=== PATIENT | female | born 1990 | race Caucasian/White ===

== ENCOUNTER 2018-02-09 03:46 | Inpatient (IN) ==
[2018-02-09] MEDS ORDERED: CARBOPROST 250 MCG/ML INJECTION IM PRN (06:15)
[2018-02-09] MEDS ORDERED: ACETAMINOPHEN 500 MG TABLET PO PRN ×2 (06:15→17:13)
[2018-02-09] MEDS ORDERED: D5LR 1,000 ML IV PRN ×2 (06:15→06:19)
[2018-02-09] MEDS ORDERED: LIDOCAINE 1% (10mg/ml) 2mL INJ PF SDV ID PRN (06:15)
[2018-02-09] MEDS ORDERED: MAG-AL + SIM ORAL LIQUID 30ml PO PRN ×2 (06:15→17:13)
[2018-02-09] MEDS ORDERED: METHYLERGONOVINE 0.2 MG/ML INJECTION IM PRN (06:15)
--- OUTSIDE RECORDS SUMMARY | 2018-02-09 06:16 | External Medical Summary | Continuity of Care Document ---
:1990 Author Organization [facility] Address [address] [place], [place] [address] Phone Support Name Relationship Address Phone Jamie Darling spouse [phone] [place] [address] Allergies, Adverse Reactions, Alerts Substance Reaction Severity Status CAT HAIR STANDARDIZED ALLERGENIC EXTRACT burning eyes Unknown Active Medications Medication Instructions Dosage Effective Dates Status Comments (start - stop) Vitamin take 1 tablet by Not Available - Active tablet oral route every day Tylenol Extra take 2 tablet by 1000 MG - Active Strength 500 mg oral route every 6 tablet hours as needed as needed Problems Condition Effective Dates (start - stop) Clinical Status 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) - (routine) w/o abn findings Follow-Up, Routine - Encounter for suprvsn of normal - , first trimester 12 weeks gestation of - Encntr screen for infections w sexl - mode of transmiss Encounter for screening for oth - infec/parastc diseases Encounter for suprvsn of normal - , first trimester Encounter for screening of - mother 10 weeks gestation of - Pap Smear Screening, Cervix - Encounter for suprvsn of normal - , first trimester 12 weeks gestation of - Active Procedures Procedure Date OB Visit No Charge - HAND 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 Age Risk Down 1:704 Syndrome 16:19:00 ARCELIA Down Syndrome <1:50 &lt Risk 16:19:00 00 ;1: 270 ARCELIA Trisomy 18 Risk <1:50 &lt 16:19:00 00 ;1: 100 Calc'd 12.7 [place] rump length (CRL) was Gestational Age 16:19:00 used to calculate gestationalage. ELVIS, if provided, was not used for gestational agedating. MARY-A 977.9 ng/mL This test was performed 16:19:00 using a kit that has not beencleared or approved by the FDA. The analytical performancecharacteristics of this test have been determined by [employer] [facility]. This testshould not be used for diagnosis without confirmation byother medically established means. MARY-A MoM 1.19 16:19:00 h-hCG, Serum 119.5 mcg/L This test was developed and 16:19:00 its analytical performancecharacteristics have been determined by [facility]. It has not beencleared or approved by FDA. This assay has been validatedpursuant to the CLIA regulations and is used for clinicalpurposes. h-hCG MoM 1.02 16:19:00 NT MoM 1.01 The maternal serum screening 16:19:00 results indicate a lower riskof trisomy 21 in this . The nasal bone was assessedvia ultrasound and was present. The combined risk istherefore likely to be less than the calculated risk. Otherfindings later in the may change the risk.Nasal bone assessment is best accomplished through a fetalultrasound performed between 11 weeks 0 days through 13weeks 6 days. In assessing the risk for aneuploidy, theevaluation of the maternal serum markers plus the nuchalthickness measurement is calculated first. Any potentialchange to the patient's risk for aneuploidy depends on thenuchal thickness, crown-rump length, and the ethnic origin,and therefore the values generated by the algorithm itselfwill not change. Additional information about the assessmentof the nasal bone may be found on the [employer] website athttp://www.fetalmedicine.c /fmf/training-certificatio n/ojnaejcuhdjd-jz-saujllrjzn /72-81-egbx-scan/assessment- uy-jbc-vpmeu-bone/Performanc e of nuchal translucency combined with maternalserum MARY-A and h-hCG provides a useful screening test fordetection of Down Syndrome and Trisomy 18 in the firsttrimester of . It should be noted that normalresults can never guarantee the of a normal baby andthat 2 to 3 percent of newborns have some type of physicalor mental defect, many of which are undetectable through anyknown diagnostic technique. First Trimester Screening screens for Down syndrome andTrisomy 18 only. Neural tube defect screening needs to beperformed in the second trimester using MSAFP (txnilasz9786O (729N)). This is best performed at 16-18 weeksgestation. This is a screening test, not a diagnostic test.This risk assessment report is based on demographic data andtest data (e.g., nuchal translucency (NT) measurement)provided by the ordering physician. Please notify thelaboratory promptly if any data (especially NT data) areincorrect. If you have any questions regarding this report:For Clinical Consultation, call [phone])For Technical Information/Recalculations, [phone], [phone]; FAX [phone]. For additional information, please refer tohttp://education.[employer]/faq/WGT30i7(This link is being provided for informational/educationalpur poses only.) Date of 1990 16:19:00 Collection Date 08/02/2017 16:19:00 Maternal Weight 167 lbs 16:19:00 Est'd Date 02/08/2018 of Delivery 16:19:00 ELVIS Determined by ULTRASOUND 16:19:00 Mother's Ethnic Origin 16:19:00 Number of Fetuses 1 16:19:00 Insulin Depend NO Diabetic 16:19:00 Repeat Specimen NO 16:19:00 Hx Of Neural Tube NO Defects 16:19:00 Prev Down NO Synd 16:19:00 Donor Egg NO 16:19:00 Donor Age: Egg NOT GIVEN Retrieval 16:19:00 Ultrasound Date 08/02/2017 16:19:00 Fixed Interest Dealer&am Kellie bruno;#39;s Name 16:19:00 NTQR [id number] Fixed Interest Dealer 16:19:00 ID# NTQR Location ID# [id number] 16:19:00 NTQR Reading Phys [id number] ID# 16:19:00 FMF NOT GIVEN Fixed Interest Dealer 16:19:00 ID# [place] Rump Length 65.8 mm 16:19:00 Nuchal Translucency 1.65 mm 16:19:00 Nasal Bone PRESENT 16:19:00 If Twins NOT GIVEN 16:19:00 Twin B CRL NOT GIVEN mm 16:19:00 Twin B NT NOT GIVEN mm 16:19:00 Twin B Nasal Bone NOT GIVEN REPORT 16:19:00 COMMENT:FASTING:NOTest performed at [facility] [id number] MICHELLE CABRAL [id number]: ROBERTO NIETO MD PHD Advance Directives Directive Yes / No Effective Date File Name Unknown Encounters Encounter Practice Location Reason(s) Diagnoses Date Provider Care Team Description For Visit Members Rob [place] Encounter for Sep-2 Eliecer Referring In Womens suprvsn of normal 7-201 Thai. 700 Provider: Health CAROLE, , first 7 Medical Makayla [address] [email or web address] weeks Center [facility] L, 1522, gestation of Juan [place], 120, Medical [place] RAMOS, [place] [id number], RACHEL, [facility] 120, [place] [id number] [place], tel:+ , [place]. [place], tel:[phone] tel:[phone] Rob [place] Encounter for Sep-2 Lavern Referring In Womens Ultrasound suprvsn of normal 7-201 Makayla. Provider: Health CAROLE, , first 7 700 Makayla [address] [email or web address] weeks Medical Lavern L, 1522, gestation of [place] [address] [place], , [facility], 120, [place] [id number], [facility], [place], tel:[phone] [place], , [place]. [id number]. tel: tel:[phone] Rob Hernandez screen for Sep-1 Lavern Referring In Womens infections w sexl 1-201 Makayla. Provider: Steven LAM, mode of 7 700 Makayla PO Box transmissEncounte Medical Lavern L, 1522, r for screening Center [address] [place] [address], for oth , [facility] Sreedhar RAMOS, infec/parastc 120, [place] [id number], diseasesEncounter [place], [facility] 120, [place] for suprvsn of [place] RAMOS, tel:[phone] normal , [phone] [place], first , [place]. [id number]. trimesterEncounte tel: tel:[phone] r for [phone] screening of weeks gestation of Rob Hernandez for complex case manager Aj-2 Lavern Referring In Womens exam (general) 1-201 Makayla. Provider: Steven LAM, (routine) w/o abn 7 700 Makayla PO Box findings [place], 1522, [place] [address] [place], Dr [facility], 120, [place] [id number], [place], Juan 120, [place] RAMOS, tel:[phone] [place], , [place]. [id number]. tel: tel:[phone] Rob [place] Remigio-1 Lavern Referring In Womens Follow-Up, 6-201 Makayla. Provider: Steven LAM, Routine 6 700 Makayla PO Box Medical Lavern L, 1522, Center [address] Dr Fidel, [facility] [place], 120, Center [id number], [place], [facility] 120, [place] RAMOS, tel:[phone] [place], , [place]. [id number]. tel: tel:[phone] Rob [place] Apr-0 Lavern Referring In Womens 6-201 Makayla. Provider: Steven LAM, 6 700 Makayla PO Box Medical Lavern L, 1522, Center [address] Dr Fidel, [facility], 120, Center [id number], [facility] 120, [place], tel:[phone] [place], , [place]. [id number]. tel: tel:[phone] Rob [place] Oct-2 Lavern Referring In Womens 9-201 Makayla. Provider: Steven LAM, 5 700 Makayla PO Box Medical Lavern L, 1522, Center [address] Dr Fidel, [facility] [place], 120, Center [id number], [place], [facility] 120, [place] RAMOS, tel:[phone] [place], , [place]. [id number]. tel: tel:[phone] Rob [place] Pap Smear Oct-1 Lavern Referring In Womens Screening, Cervix 2-201 Makayla. Provider: Steven LAM, 5 700 Makayla PO Box Medical [place] L, 1522, Center [address], [facility] [place], 120, Center [id number], [place], [facility] 120, [place] RAMOS, tel:[phone] [place], , [place]. [id number]. tel: tel:[phone] Rob [place] Mercedes In Womens 1-201 [facility], 5 700 PO [facility] 1522, [place] Dr Fidel, [facility], 120, [id number], [place], [place], tel:[phone] , [place]. tel: [phone] Family History Family Member Diagnosis Age At Onset No family history of Venous Thrombosis No family history of Pulmonary Embolism Father Stroke Immunizations Vaccine Date Status Comments Influenza, injectable, completed Source: New Immunization Record quadrivalent, preservative free, 3 yrs or older Tdap completed Source: New Immunization Record Influenza, seasonal, injectable, completed Source: Source Unspecified preservative free, 3 yrs or older Payers Payer name Insurance type Covered libertarian ID Authorization(s) [facility] [id number] [facility] [id number] [facility] [id number] Social History Type Description Quantity Date Captured Alcohol Use Details No Caffeine Use Details Unknown Tobacco Use Status Unknown Smoking Status Never smoker Vital Signs Date / Height Weight BMI Pulse Blood Temperature Respiratory Body Head BMI Time: Rate Pressure Rate Surface Circumference percentile Area 167.00 29.5 108/ lbs 8 mm[Hg] 4:07 kg/m PM eter (2) Chief Complaint And Reason For Visit Unknown Chief Complaint And Reason For Visit Reason For Referral Reason For Referral Unknown Plan Of Care Date Type Action Status Appointment Laura Darling BOOKED Future Order: Lab Order Pap Smear With HPV Reflex If ASCUS Ordered (WPMPap1) Future Order: Radiology Order Nuchal Translucency ([id number]) Ordered Date Type Problem Goal Intervention Status Start Date Unknown. History Of Present Illness Encounter Date Complaint History Of Present Illness This patient has no known history of present illness Functional Status Encounter Date Functional Assessment Cognitive Assessment Unknown Medications Administered Medication Instructions Dosage Effective Dates (start - stop) Status Comments Drug Treatment Unknown Instructions Date Instruction Additional Information exercise indications for ultrasound influenza vaccine environmental / work hazards travel use of any medications (including supplements, vitamins, herbs, OTC drugs) domestic violence seat belt use childbirth classes / hospital facilities hospital registration genetic testing Zika virus assessment & precautions HIV and other routine tests risk factors identified by history anticipated course of care nutrition and weight gain counseling, special diet toxoplasmosis precautions (cats / raw meat) sexual activity Giving encouragement to exercise Related to Body mass index 27.0-27.9 new ob handbook Zika virus assessment & precautions HIV and other routine tests risk factors identified by history anticipated course of care nutrition and weight gain counseling, special diet toxoplasmosis precautions (cats / raw meat) sexual activity exercise indications for ultrasound influenza vaccine environmental / work hazards travel use of any medications (including supplements, vitamins, herbs, OTC drugs) seat belt use childbirth classes / hospital facilities hospital registration genetic testing
--- OUTSIDE RECORDS SUMMARY | 2018-02-09 06:16 | External Medical Summary | Continuity of Care Document ---
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) - (routine) w/o abn findings Follow-Up, Routine - Encounter for suprvsn of normal - , second trimester 20 weeks gestation of - Encntr screen for infections w sexl - mode of transmiss Encounter for screening for oth - infec/parastc diseases Encounter for suprvsn of normal - , first trimester Encounter for screening of - mother 10 weeks gestation of - Encounter for suprvsn of normal - , second trimester 17 weeks gestation of - Pap Smear Screening, Cervix - Encounter for suprvsn of normal - , first trimester 12 weeks gestation of - Encounter for suprvsn of normal - , first trimester 12 weeks gestation of - Encounter for suprvsn of normal - , second trimester 20 weeks gestation of - Active Procedures Procedure Date OB Visit No Charge - 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 Provider: Health CAROLE, , second 7 700 Makayla [address] [email or web address] weeks Medical Lavern L, 1522, gestation of Center [address] [place] [address], , [facility], 120, [place] [id number], [place], [facility] 120, [place] RAMOS, tel:[phone] [place], , [place]. [id number]. tel: tel:[phone] Rob [place] Encounter for Lavern Referring In Womens Ultrasound suprvsn of normal 0-201 Makayla. Provider: Health CAROLE, , second 7 700 Makayla PO Box weeks Medical aLvern L, 1522, gestation of Center [address] [place] [address], , [facility], 120, [place] [id number], [place], [facility] 120, [place] RAMOS, tel:[phone] [place], , [place] [id number]. tel: tel:[phone] [place] Encounter for Aug- Lavern Referring In Womens suprvsn of normal 0-201 Makayla. Provider: Health CAROLE, , second 7 700 Makayla PO Box [email or web address] weeks Medical Lavern L, 1522, gestation of Center [address] [place] [address], Dr [facility] [place], 120, [place] [id number], [place], [facility] 120, [place] Oliver RAMOS, tel:[phone] [place], , [place]. [id number]. tel: tel:[phone] [place] Encounter for Jul- Eliecer Referring In Womens suprvsn of normal 7-201 Thai. 700 Provider: Health CAROLE, , first 7 Medical Makayla PO Box [email or web address] weeks Center Lavern [place], 1522, gestation of Juan Par[place], 120, Medical Oliver RAMOS, [place] [id number], [facility] 120, [place] [id number] [place], tel:+ , [place]. [place], tel:[phone]. [id number] tel:[phone] Rob [place] Encounter for Sep-2 Lavern Referring In Womens Ultrasound suprvsn of normal 7-201 Makayla. Provider: Steven LAM, , first 7 700 Makayla PO Box [id number] weeks Medical Lavern [place], 1522, gestation of Center [facility] Fidel, , [facility], 120, [place] [id number], [facility], [place], tel:[phone] [place], , [place]. [id number]. tel: tel:[phone] Rob [place] Encntr screen for Sep-1 Lavern Referring In Womens infections w sexl 1-201 Makayla. Provider: Steven LAM, mode of 7 700 Makayla PO Box transmissEncounte Medical Lavern [place], 1522, r for screening Center [address] [place] [address], for oth Dr [facility] RACHEL, infec/parastc 120, Center [id number], diseasesEncounter [place], [facility] 120, [place] for suprvsn of Oliver RAMOS, tel: normal , [phone] [place], first , [place]. [id number]. 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 Provider: Steven LAM, (routine) w/o abn 7 700 Makayla PO Box findings [place], 1522, Center [facility] Fidel, [facility] RACHEL, 120, [place] [id number], [facility] 120, [place] RAMOS, tel:[phone] [place], , [place]. [id number]. tel: tel:[phone] Rob [place] Remigio-1 Lavern Referring In Womens Follow-Up, 6-201 Makayla. Provider: Steven LAM, Routine 6 700 Makayla PO Box Medical Lavern L, 1522, Center [address] Dr [place], [facility], 120, Center [id number], [place], [facility] 120, [place] RAMOS, tel:[phone] [place], , [place]. [id number]. tel: tel:[phone] Rob [place] Apr-0 Lavern Referring In Womens 6-201 Makayla. Provider: Steven LAM, 6 700 Makayla PO Box Medical Lavern L, 1522, Center [address] Dr [place], [facility], 120, Center [id number], [place], [facility] 120, [place] RAMOS, tel:[phone] [place], , [place]. [id number]. tel: tel:[phone] Rob [place] Oct-2 Lavern Referring In Womens 9-201 Makayla. Provider: Steven LAM, 5 700 Makayla PO Box Medical Lavern L, 1522, Center [address] Dr [place], [facility], 120, Center [id number], [place], [facility] 120, [place] RAMOS, tel:[phone] [place], , [place]. [id number]. tel: tel:[phone] Rob [place] Pap Smear Oct-1 Lavern Referring In Womens Screening, Cervix 2-201 Makayla. Provider: Steven LAM, 5 700 Makayla PO Box Medical Lavern L, 1522, Center [facility] Dr F[place], [facility], 120, Center [id number], [place], [facility] 120, [place] RAMOS, tel:[phone] [place], , [place]. [id number]. tel: tel:[phone] Rob [place] Aug-3 Mercedes In Womens 1-201 [facility], 5 700 [facility] 1522, [place] Dr F[place], [facility], 120, [id number], [place], tel:[phone] [address] , . tel:[phone] Family History Family Member Diagnosis Age At [...] older Payers Payer name Insurance type Covered alliance party ID Authorization(s) [facility] [id number] [facility] [id number] [facility] [id number] Social History Type Description Quantity Date Captured Alcohol Use Details No Caffeine Use Details Unknown 3 cups per day Tobacco Use Status Never smoked tobacco Smoking Status Never smoker Vital Signs Date / Height Weight BMI Pulse Blood Temperature Respiratory Body Head BMI Time: Rate Pressure Rate Surface Circumference percentile Area 168.30 29.8 / lbs 1 mm[Hg] 1:15 kg/m PM eter (2) Chief Complaint And Reason For Visit Unknown Chief Complaint And Reason For Visit Reason For Referral Reason For Referral Unknown Plan Of Care Date Type Action Status Appointment Laura Darling BOOKED Future Order: Lab Order Pap Smear With HPV Reflex If ASCUS Ordered (WPMPap1) Future Order: Radiology Order Nuchal Translucency ([id number]) Ordered Future Order: Radiology Order Complete OB Ultrasound > 14 Ordered Weeks ([id number]) Date Type Problem Goal Intervention Status Start [...]
--- OUTSIDE RECORDS SUMMARY | 2018-02-09 06:16 | External Medical Summary | Continuity of Care Document ---
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 [place], tel:[phone] [id number] tel:[phone] Rob [place] Encounter for Sep-2 Lavern Referring In Womens Ultrasound suprvsn of normal 7-201 Makayla. Provider: Health CAROLE, , first 7 700 Makayla [address] [id number] weeks Medical [place] L, 1522, gestation of [place] [address] Fidel, , [facility], 120, [place] [id number], [facility], [place] RAMOS, tel:[phone] [place], , [place]. [id number]. tel: tel:[phone] Rob Hernandez screen for Sep-1 Lavern Referring In Womens infections w sexl 1-201 Makayla. Provider: Steven LAM, mode of 7 700 Makayla PO [address] transmissEncounte Medical La[place] L, 1522, r for screening Center [address] [place] [address], for oth , [facility] Sreedhar RAMOS, infec/parastc 120, [place] [id number], diseasesEncounter [place], [facility] 120, [place] for suprvsn of Oliver RAMOS, tel:[phone] normal , [phone] [place], first , [place]. [id number]. 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 Provider: Steven LAM, (routine) w/o abn 7 700 Makayla PO Box findings Sreedhar Forte, 1522, [place] [address] F[place], Dr [facility], 120, [place] [id number], [place], Juan 120, [place] Oliver RAMOS, tel:[phone] [place], , [place]. [id number]. tel: tel:[phone] Rob [place] Remigio-1 Lavern Referring In Womens Follow-Up, 6-201 Makayla. Provider: Steven LAM, Routine 6 700 Makayla PO Box Medical La[place] L, 1522, Center [address] Dr Fidel, [facility] [place], 120, Center [id number], Oliver, [facility] 120, [place] Oliver RAMOS, tel:[phone] [place], , [place]. [id number]. tel: tel:[phone] Rob [place] Apr-0 Lavern Referring In Womens 6-201 Makayla. Provider: Steven LAM, 6 700 Makayla PO Box Medical La[place] L, 1522, Center [address] Dr Fidel, [facility], 120, Center [id number], [facility] 120, [place] Oliver RAMOS, tel:[phone] [place], , [place]. [id number]. tel: tel:[phone] Rob [place] Oct-2 Lavern Referring In Womens 9-201 Makayla. Provider: Steven LAM, 5 700 Makayla PO Box Medical Lavern L, 1522, Center [address] Dr Fidel, [facility] [place], 120, Center [id number], Oliver, [facility] 120, [place] Oliver RAMOS, tel:[phone] [place], , [place]. [id number]. tel: tel:[phone] Rob [place] Pap Smear Oct-1 Lavern Referring In Womens Screening, Cervix 2-201 Makayla. Provider: Steven LAM, 5 700 Makayla PO Box Medical La[place] L, 1522, Center [address], [facility] [place], 120, Center [id number], Oliver, [facility] 120, [place] Oliver RAMOS, tel:[phone] [place], , [place]. [id number]. tel: tel:[phone] Rob [place] Mercedes In Womens 1-201 Shannan. [facility], 5 700 PO Box [facility] 1522, [place] Dr Fidel, [facility], 120, [id number], [place], tel:[phone] [phone] , [place]. tel: [phone] Family History Family Member Diagnosis Age At [...] name Insurance type Covered libertarian ID Authorization(s) [facility] [id number] [facility] [id number] [facility] [id number] Social History Type Description Quantity Date Captured Unknown Vital Signs Date / Height Weight BMI Pulse Blood Temperature Respiratory Body Head BMI Time: Rate Pressure Rate Surface Circumference percentile Area Unknown Chief Complaint And Reason For Visit Unknown Chief Complaint And Reason For Visit Reason For Referral Reason For Referral Unknown Plan Of Care Date Type Action Status Appointment Laura Darling BOOKED Future Order: Radiology Order Nuchal Translucency ([id number]) Ordered Future Order: Lab Order Pap Smear With HPV Reflex If ASCUS Ordered ([id number]) Date Type Problem Goal Intervention Status Start [...]
--- OUTSIDE RECORDS SUMMARY | 2018-02-09 06:16 | External Medical Summary | Continuity of Care Document ---
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) w/o abn findings Follow-Up, Routine - Encounter for suprvsn of normal - , third trimester 34 weeks gestation of - Encntr screen for infections w sexl - mode of transmiss Encounter for screening for oth - infec/parastc diseases Encounter for suprvsn of normal - , first trimester Encounter for screening of - mother 10 weeks gestation of - Encounter for suprvsn of normal - , second trimester 17 weeks gestation of - Low Lying Placenta Nos Or W/out - Hemorrhage, Second Trimester Encounter for suprvsn of normal - , second trimester 24 weeks gestation of - Low Lying Placenta Nos Or W/out - Hemorrhage, Third Trimester 30 weeks gestation of - Low Lying Placenta Nos Or W/out - Hemorrhage, Third Trimester Encounter for suprvsn of normal - , third trimester 28 weeks gestation of - Pap Smear Screening, Cervix - Encounter for suprvsn of normal - , first trimester 12 weeks gestation of - Encounter for suprvsn of normal - , first trimester 12 weeks gestation of - Encounter for suprvsn of normal - , second trimester 20 weeks gestation of - Encounter for suprvsn of normal - , second trimester 20 weeks gestation of - Encounter for suprvsn of normal - , third trimester Encounter For Screening For - Streptococcus B 36 weeks gestation of - Encounter for suprvsn of normal - , third trimester 30 weeks gestation of - Encounter for suprvsn of normal - , third trimester 32 weeks gestation of - Active Procedures Procedure Date OB Visit No Charge Results Test Name Date and Time Measure Units Reference Range Abnormal Flag Comments Unknown Advance Directives Directive Yes / No Effective Date File Name Unknown Encounters Encounter Practice Location Reason(s) Diagnoses Date Provider Care Team Description For Visit Members Rob [place] Encounter for Lavern Referring In Womens suprvsn of normal 2-201 Makayla. Provider: Health PA, , third 8 700 Makayla PO Box trimesterEncounte Sreedhar Puckett L, 1522, r For Center 700 [place], Screening For Juan Parham, Streptococcus B36 120, Center [id number], weeks gestation Juan [place] 120, [place] of Oliver RAMOS, tel:[phone] RACHEL, [id number] , [place]. [id number]. tel: tel:[phone] Rob [place] Encounter for Feb-2 Lavern Referring In Womens suprvsn of normal 6-201 Makayla. Provider: Steven LAM, , third 8 700 Makayla PO Box [id number] weeks Medical Lavern L, 1522, gestation of Center [address] [place] [address], , [facility] [place], 120, Center , Oliver [facility] 120, [place] Oliver RAMOS, tel:[phone] [place], , [place]. [id number]. tel: tel:[phone] Rob [place] Encounter for Lavern Referring In Womens suprvsn of normal 2-201 Makayla. Provider: Steven LAM, , third 8 700 Makayla PO Box weeks Medical Lavern L, 1522, gestation of Center [address] [place] [address], , [facility] [place], 120, [place] [id number], Oliver [facility] 120, [place] Oliver RAMOS, tel:[phone] [place], , [place]. [id number]. tel: tel:[phone] Rob [place] Encounter for Lavern Referring In Womens suprvsn of normal 9-201 Makayla. Provider: Steven LAM, , third 8 700 Makayla PO Box [id number] weeks Medical Lavern L, 1522, gestation of Center [address] [place] [address], , [facility] [place], 120, Center [id number], Oliver [facility] 120, [place] Oliver RAMOS, tel:[phone] [place], , [place]. [id number]. tel: tel:[phone] Rob [place] Low Lying Nov- Lavern Referring In Womens Ultrasound Placenta Nos Or 9-201 Makayla. Provider: Steven LAM, W/out Hemorrhage, 8 700 Makayla PO Box Third [id number] Medical Lavern L, 1522, weeks gestation Center [address] [place] [address], [address] Dr [facility] [place], 120, Center [id number], Oliver [facility] 120, [place] Oliver RAMOS, tel:[phone] [place], , [place]. [id number]. tel: tel:[phone] Associates [place] Low Lying Rob-1 Lavern Referring In Womens Placenta Nos Or 5-201 Makayla. Provider: Health CAROLE, W/out Hemorrhage, 8 700 Makayla PO Box Third Medical Lavern L, 1522, TrimesterEncounte Center [address] [place] [address], r for suprvsn of Juan Parham, normal , 120, Center [id number], third [id number] Oliver Juan 120, [place] weeks gestation Oliver RAMOS, tel:+ [phone] [place], , [place]. [id number]. tel: tel:[phone] Rob [place] Low Lying Dec-1 Lavern Referring In Womens Placenta Nos Or 8-201 Makayla. Provider: Health CAROLE, W/out Hemorrhage, 7 700 Makayla PO Box Second Medical Lavern L, 1522, TrimesterEncounte Center [address] [place] [address], r for suprvsn of Juan Parham, normal , 120, Center [id number], second Oliver Juan 120, [place] [id number] weeks Oliver RAMOS, tel: gestation of [phone] [place], , [place]. [id number]. tel: tel:[phone] Rob [place] Encounter for Nov-2 Lavern Referring In Womens suprvsn of normal 0-201 Makayla. Provider: Steven LAM, , second 7 700 Makayla PO Box [id number] weeks Medical Lavern L, 1522, gestation of Center [address] [place] [address], Juan Parham, 120, Center [id number], Oliver Juan 120, [place] Oliver RAMOS, tel: [phone] [place], , [place]. [id number]. tel: tel:[phone] Rob [place] Encounter for Nov-2 Lavern Referring In Womens Ultrasound suprvsn of normal 0-201 Makayla. Provider: Steven LAM, , second 7 700 Makayla PO Box [id number] weeks Medical Lavern L, 1522, gestation of Center [address] [place] [address], Juan Parham, 120, Center [id number], Oliver Juan 120, [place] Oliver RAMOS, tel:[phone] [place], , [place]. [id number]. tel: tel:[phone] Rob [place] Encounter for Oct-3 Lavern Referring In Womens suprvsn of normal 0-201 Makayla. Provider: Steven LAM, , second 7 700 Makayla PO Box [id number] weeks Medical Lavern L, 1522, gestation of Center [address] [place] [address], , [facility] [place], 120, [place] [id number], Oliver, [facility] 120, [place] Oliver RAMOS, tel:[phone] [place], , [place]. [id number]. tel: tel:[phone] Rob [place] Encounter for Sep-2 Eliecer Referring In Womens suprvsn of normal 7-201 Thai. 700 Provider: Steven LAM, , first 7 Medical Makayla PO Box [email or web address] weeks [place] Lavern Forte, 1522, gestation of Juan Parham [place], 120, Medical Oliver RAMOS, [place] [id number], [place], [facility] 120, [place] [id number] Oliver, tel: , [place]. [place], tel: [phone]. [id number] tel:[phone] Rob [place] Encounter for Sep-2 Lavern Referring In Womens Ultrasound suprvsn of normal 7-201 Makayla. Provider: Steven LAM, , first 7 700 Makayla PO Box weeks Medical Lavern L, 1522, gestation of Center [address] [place] [address], , [facility], 120, [place] [id number], Oliver, [facility] 120, [place] Oliver RAMOS, tel:[phone] [place], , [place]. [id number]. tel: tel:[phone] Rob [place] Encntr screen for Sep-1 Lavern Referring In Womens infections w sexl 1-201 Makayla. Provider: Steven LAM, mode of 7 700 Makayla PO Box transmissEncounte [facility] Lavern L, 1522, r for screening [address], for oth , [facility], infec/parastc 120, [place] [id number], diseasesEncounter Oliver, [facility] 120, [place] for suprvsn of Oliver RAMOS, tel:[phone] normal , [phone] [place], first , [place]. [id number]. 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 Provider: Steven LAM, (routine) w/o abn 7 700 Makayla PO Box findings Medical Lavern L, 1522, Center [address], [facility] [place], 120, Center [id number], Oliver [facility] 120, [place] Oliver RAMOS, tel:[phone] [place], , [place]. [id number]. tel: tel:[phone] Rob [place] Remigio- Lavern Referring In Womens Follow-Up, 6- Makayla. Provider: Steven LAM, Routine 6 700 Makayla PO Box Medical Lavern L, 1522, Center [address], [facility] [place], 120, Center [id number], Oliver [facility] 120, [place] Oliver RAMOS, tel:[phone] [place], , [place]. [id number]. tel: tel:[phone] Rob [place] Apr-0 Lavern Referring In Womens 6-201 Makayla. Provider: Steven LAM, 6 700 Makayla PO Box Medical Lavern L, 1522, Center [address], [facility] [place], 120, Center [id number], Oliver [facility] 120, [place] Oliver RAMOS, tel:[phone] [place], , [place]. [id number]. tel: tel:[phone] Rob [place] Aug-2 Lavern Referring In Womens 9-201 Makayla. Provider: Steven LAM, 5 700 Makayla PO Box Medical Lavern L, 1522, Center [address], [facility] [place], 120, Center [id number], Oliver [facility] 120, [place] Oliver RAMOS, tel: [phone] [place], , [place]. [id number]. tel: tel: [phone] Rob [place] Pap Smear Lavern Referring In Women Screening, Cervix 2-201 Makayla. Provider: Health [place], 5 700 Makayla PO Box Medical [facility], 1522, [place] [address], [facility], 120, [place] [id number], Oliver, [facility] 120, RACHEL, Oliver, tel: [phone] [place], , [place]. [id number]. tel: tel: [phone] Rob [place] Mercedes In Womens 1-201 Shannan. Health [place], 5 700 PO Box Medical 1522, [place] Dr Fidel, [facility] [place], 120, [id number], Oliver, RACHEL, tel: [phone] , [place]. tel: [phone] Family History Family Member Diagnosis Age At Onset No family history of Venous Thrombosis No family history of Pulmonary Embolism Father Stroke Immunizations Vaccine Date Status Comments Tdap completed Source: New Immunization Record Influenza, injectable, completed Source: New Immunization Record quadrivalent, preservative free, 3 yrs or older Tdap completed Source: New Immunization Record Influenza, seasonal, injectable, completed Source: Source Unspecified preservative free, 3 yrs or older Payers Payer name Insurance type Covered democrat ID Authorization(s) [facility] [id number] [facility] [id number] [facility] [id number] [facility] [id number] Social History Type Description Quantity Date Captured [...] Type Action Status Appointment Laura Darling BOOKED Appointment Laura Darling BOOKED Appointment Laura Darling BOOKED Appointment Laura Darling BOOKED Future Order: Radiology Order Ultrasound OB Follow-up ([id number]) Ordered Future Order: Lab Order Pap Smear With HPV Reflex If ASCUS Ordered ([id number]) Future Order: Radiology Order Nuchal Translucency ([id number]) Ordered Future Order: Radiology Order Complete OB Ultrasound > 14 Ordered Weeks ([id number]) Date Type Problem Goal Intervention Status Start [...]
--- OUTSIDE RECORDS SUMMARY | 2018-02-09 06:16 | External Medical Summary | Continuity of Care Document ---
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 Panel With An HIV Venpnctr fngr/heel/ear stick routne Urine Culture Infct antign, chlamydia trac, ampl Neisseria Gonorrhoeae, Amplification Cult, bactr, ident isolate, urine Results Test Name Date and Time Measure Units Reference Range Abnormal Flag Comments Panel Description: OBSTETRIC PANEL WHITE BLOOD CELL 8.8 Thousand/uL 3.8-10.8 N COUNT 15:59:00 RED BLOOD CELL 4.49 Million/uL 3.80-5.10 N COUNT 15:59:00 HEMOGLOBIN 13.6 g/dL 11.7-15.5 N 15:59:00 HEMATOCRIT 39.5 % 35.0-45.0 N 15:59:00 MCV 88.0 fL 80.0-100.0 N 15:59:00 MCH 30.3 pg 27.0-33.0 N 15:59:00 MCHC 34.4 g/dL 32.0-36.0 N 15:59:00 RDW 12.9 % 11.0-15.0 N 15:59:00 PLATELET COUNT 165 Thousand/uL 140-400 N 15:59:00 MPV 11.3 fL 7.5-12.5 N 15:59:00 ABSOLUTE 5342 cells/uL 1701-7434 N NEUTROPHILS 15:59:00 ABSOLUTE 2684 cells/uL 850-3900 N LYMPHOCYTES 15:59:00 ABSOLUTE 537 cells/uL 200-950 N MONOCYTES 15:59:00 ABSOLUTE 211 cells/uL 15-500 N EOSINOPHILS 15:59:00 ABSOLUTE 26 cells/uL 0-200 N BASOPHILS 15:59:00 NEUTROPHILS 60.7 % N 15:59:00 LYMPHOCYTES 30.5 % N 15:59:00 MONOCYTES 6.1 % N 15:59:00 EOSINOPHILS 2.4 % N 15:59:00 BASOPHILS 0.3 % N 15:59:00 ANTIBODY SCREEN, NO ANTIBODIES N RBC W/REFL ID, 15:59:00 DETECTED Reference range TITER AND AG No antibodies detected This assay is a screening test for the detection of red blood cell antibodies. The test is not to be used for pretransfusion screening or for the medical management of an alloimmunized . ABO GROUP A 15:59:00 RH TYPE RH(D) 15:59:00 POSITIVE RPR (DX) W/REFL NON-REACTIVE NON-REACTIV N TITER AND 15:59:00 E CONFIRMATORY TESTING HEPATITIS B NON-REACTIVE NON-REACTIV N SURFACE ANTIGEN 15:59:00 E RUBELLA ANTIBODY <0.90 index L Index (IGG) 15:59:00 Interpretation ----- <0.90 Not consistent with Immunity 0.90-0.99 Equivocal > or=1.00 Consistent with Immunity The presence of rubella IgG antibody suggests immunization or past or current infection withrubella virus.Test performed at [facility] [id number] [place] [address]Bvguayw r: GIOVANY PEREZ DO,MPH Panel Description: HIV 1/2 ANTIGEN/ANTIBODY,FOURTH GENERATION W/RFL HIV NON-REACTIVE NON-REACTIVE N HIV-1 antigen and HIV-1/HIV- 2 antibodies were AG/AB, 15:59:00 notdetected. There is no laboratory evidence of 4TH GEN HIVinfection. PLEASE NOTE: This information has been disclosed toyou from records whose confidentiality may beprotected by state law. If your state requires suchprotection, then the state law prohibits you frommaking any further disclosure of the informationwithout the specific written consent of the personto whom it pertains, or as otherwise permitted by law.A general authorization for the release of medical orother information is NOT sufficient for this purpose. For additional information please refer tohttp://education.InferX/faq/EMG517(This link is being provided for informational/educational purposes only.) The performance of this assay has not been clinicallyvalidated in patients less than 2 years old. REPORT COMMENT:FASTING:NOTest performed at [facility] [id number] [place] [address]Mqpwavlu: GIOVANY PEREZ DO,MPH Panel Description: Bacteria identified in Urine by Culture CULTURE, URINE, SEE NOTE CULTURE, URINE, ROUTINE MICRO ROUTINE 15:58:00 NUMBER: [id number] TEST STATUS: FINAL SPECIMEN SOURCE: URINE, CLEAN CATCH SPECIMEN QUALITY: ADEQUATE RESULT: Multiple organisms present, each less than 10,000 CFU/mL. These organisms, commonly found on external and internal genitalia, are considered to be colonizers. No further testing performed.REPORT COMMENT:RFASTING:UNKNOWNTest performed at [facility] [address] [address]Igvuwocl: GIOVANY PEREZ DO,MPH Panel Description: CHLAMYDIA/N. GONORRHOEAE RNA, TMA CHLAMYDIA NOT DETECTED NOT DETECTED N TRACHOMATIS RNA, 16:46:00 TMA NEISSERIA NOT DETECTED NOT DETECTED N GONORRHOEAE RNA, 16:46:00 TMA [id number] SEE NOTE This test was 16:46:00 performed using the APTIMA COMBO2 Assay([employer] The analytical performance characteristics of this assay, when used to test SurePath specimens havebeen determined by [employer]. REPORT COMMENT:FASTING:UNKNO WNTest performed at [facility] [address] [address]Lroihidz: GIOVANY PEREZ DO,MPH Panel Description: Pap Smear With HPV Reflex If ASCUS Document Pap Smear 15:00:00 See scanned report. Advance Directives Directive Yes / No Effective Date File Name Unknown Encounters Encounter Practice Location Reason(s) Diagnoses Date Provider Care Team Description For Visit Members Rbo Boyd Encounter for Jul- Eliecer Referring In Womens suprvsn of normal 7-201 [place] [address] Provider: Health PA, , first 7 Medical Makayla [address] [email or web address] weeks Center Lavern L, 1522, gestation of Juan Parham, 120, Medical [facility] [id number], RACHEL, [facility] 120, [place] [id number] [place], tel: , . RACHEL, 649888 tel: [phone]. [id number] tel:[phone] Rob Boyd Encounter for Sep-2 Lavern Referring In Womens Ultrasound suprvsn of normal 7-201 Makayla. Provider: Steven LAM, , first 7 700 Makayla [address] [email or web address] weeks Medical Lavern L, 1522, gestation of Center [address] [place] [address], Dr, [facility] [place], 120, Center [id number], [place] [facility] 120, [place] Oliver RAMOS, tel:[phone] [place], , [place]. [id number]. tel: tel:[phone] Rob Boyd Encntr screen for Sep-1 Lavern Referring In Womens infections w sexl 1-201 Makayla. Provider: Steven LAM, mode of 7 700 Makayla PO Box transmissEncounte Medical Lavern Forte, 1522, r for screening Center [address] [place] [address], for oth , [facility] RAMOS, infec/parastc 120, Center [id number], diseasesEncounter Oliver, [facility] 120, [place] for suprvsn of [place], tel:[phone] normal , [phone] [place], first , [place]. [id number]. 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 Provider: Steven LAM, (routine) w/o abn 7 700 Makayla PO Box findings [place] L, 1522, Center [facility] Dr Fidel, [facility] [place], 120, [place] [id number], [place] [facility] 120, [place] Oliver RAMOS, tel:[phone] [place], , [place]. [id number]. tel: tel:[phone] Rob Boyd Remigio-1 Lavern Referring In Womens Follow-Up, 6-201 Makayla. Provider: Steven LAM, Routine 6 700 Makayla PO Box Medical Lavern Forte, 1522, Center [facility] Dr Fidel, [facility] [place], 120, Center [id number], [place] [facility] 120, [place] Oliver RAMOS, tel:[phone] [place], , [place]. [id number]. tel: tel: [phone] Rob Boyd Feb-0 Lavern Referring In Womens 6-201 Makayla. Provider: Steven LAM, 6 700 Makayla PO Box Medical Lavern L, 1522, Center [address] Dr Fidel, [facility], 120, Center [id number], [facility] 120, Oliver RAMOS, tel: [phone] [place], , [place]. [id number]. tel: tel:[phone] Rob Boyd Aug- Lavern Referring In Womens 9-201 Makayla. Provider: Steven LAM, 5 700 Makayla Box Medical Lavern L, 1522, Center [facility] Dr Fidel, [facility], 120, Center [id number], [facility] 120, Oliver RAMOS, tel:[phone] [place], , [place]. [id number]. tel: tel: [phone] Rob Boyd Pap Smear Lavern Referring In Womens Screening, Cervix 2-201 Makayla. Provider: Steven LAM, 5 700 [facility] Medical Lavern L, 1522, Center [facility] Dr Fidel, [facility], 120, Center [id number], [facility] 120, Oliver RAMOS, tel: [phone] [place], , [place]. [id number]. tel: tel:[phone] Rob Boyd Jun- Mercedes In Womens 1-201 Shannan. Steven LAM, 5 700 [facility] Medical 1522, [place] [address] Fidel, [facility] [place], 120, [id number] Sigala, RACHEL, tel:[phone] , [place]. tel: [phone] Family History Family Member Diagnosis Age At [...] older Payers Payer name Insurance type Covered republican ID Authorization(s) [facility] RACHEL [id number] [facility] RACHEL BL [id number] [facility] [id number] Social History Type Description Quantity Date Captured Alcohol Use Details No Caffeine Use Details Unknown 3 cups per day Tobacco Use Status Never smoked tobacco Smoking Status Never smoker Vital Signs Date / Height Weight BMI Pulse Blood Temperature Respiratory Body Head BMI Time: Rate Pressure Rate Surface Circumference percentile Area 4 3:04 kg/m PM eter (2) 165.00 29.2 126/76 -2017 lbs 3 mm[Hg] 3:17 kg/m PM eter (2) 8 3:04 kg/m PM eter (2) Chief Complaint And Reason For Visit Unknown Chief Complaint And Reason For Visit Reason For Referral Reason For Referral Unknown Plan Of Care Date Type Action Status Appointment Laura Darling BOOKED Future Order: Lab Order Pap Smear With HPV Reflex If ASCUS Ordered (WPMPap1) Future Order: Radiology Order Nuchal Translucency ([id number]) Ordered Date Type Problem Goal Intervention Status [...]
--- OUTSIDE RECORDS SUMMARY | 2018-02-09 06:17 | External Medical Summary | Continuity of Care Document ---
:1990 Author Organization 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 Provider: est,18-39 yrs Health PA, patient well (general) 700 Makayla [address], woman exam (routine) Medical Fidel Enrique [place], (chief w/o abn Center , 700 [id number], complaint) findings Juan 120, Medical [address]ene [address] tel:-[phone] [place], Juan 120, [id number], [place] Oliver. RACHEL, tel:[phone]. [id number] tel:[phone] Rob Boyd Lavern In Womens -2015 Makayla. Health CAROLE, 700 [address], Medical Fidel [place], Center , [id number], Juan 120, [place], tel:[phone] [place], [id number], . tel:[phone] Rob Boyd Lavern Referring In Womens Follow-Up, nda. Provider: Steven LAM, Routine 700 Makayla [address], Medical [place] [facility], [place] Martina Parham [id number], Juan 120, [facility] tel:[phone] [place], Juan 120, [id number], [facility] [place], tel:[phone]. [id number] tel:[phone] Rob Boyd Lavern Referring In Womens -2015 Makayla. Provider: Steven LAM, 700 Makayla [address], Medical Fidel Enrique [place], [place] Martina Parham [id number], Juan 120, [facility] tel:[phone] [place], Juan 120, [id number], [facility] [place], tel:[phone]. [id number] tel:[phone] Rob Boyd Lavern Referring In Womens -2014 Makayla. Provider: Steven LAM, 700 Makayla [address], Medical [place], [place] Martina Parham [id number], Juan 120, [facility] tel:[phone] [place], Juan 120, [id number], [facility] [place], tel:[phone]. [id number] tel:[phone] Rob Boyd Pap Smear Lavern Referring In Womens Screening, . Provider: Steven LAM, Cervix 700 Makayla [address], Medical Fidel Enrique [place], Center Martina Parham [id number], Juan 120, [facility] tel:[phone] [place], Juan 120, [id number], [facility] [place], tel:[phone]. [id number] tel:[phone] [facility] Mercedes In Women -2014 Shannan. [address] [place] [address], Medical [address], Center Fidel Parham, [place], Juan 120, [id number], [place], [place], tel:[phone], [address] [place]. tel:[phone] Family History Family Member Diagnosis Age At Onset No family history of Venous Thrombosis No family history of Pulmonary Embolism Father Stroke Immunizations Vaccine Date Status Comments Tdap completed Source: New Immunization Record Influenza, seasonal, injectable, completed Source: Source Unspecified preservative free, 3 yrs or older Payers Payer name Insurance type Covered republican ID Authorization(s) [facility] [id number] [facility] [id number] Social History Type Description Quantity Date Captured Alcohol Use Details No Caffeine Use Details Unknown 3 cups per day Tobacco Use Status Never smoked tobacco Smoking Status Never smoker Non-Smoking Tobacco Use : No Details Available : No Details Available Details Vital Signs Date / Height Weight BMI Pulse Blood Temperature Respiratory Body Head BMI Time: Rate Pressure Rate Surface Circumference percentile Area 63.00 160.80 28.4 77 in lbs 8 /min mm[Hg] 3:13 kg/m PM eter (2) Chief Complaint And Reason For Visit Most recent encounter only, dated '05/26/2017 14:50'. an established patient well woman exam (chief complaint). Description: No complaints. Reason For Referral Reason For Referral Unknown Plan Of Care Date Type Action Status Appointment Laura Darling BOOKED Future Order: Lab Order Pap Smear With HPV Reflex If ASCUS Ordered (WPMPap1) Date Type Problem Goal Intervention Status Start Date Unknown. History Of Present Illness Encounter Date Complaint History Of Present Illness an established patient well woman exam No complaints. Functional Status Encounter Date Functional Assessment Cognitive Assessment Unknown Medications Administered Medication Instructions Dosage Effective Dates (start - stop) Status Comments Drug Treatment Unknown Instructions Date Instruction Additional Information Giving encouragement to exercise Related to Body mass index 27.0-27.9 new ob handbook ACOG book HIV and other routine tests risk factors [...]
--- OUTSIDE RECORDS SUMMARY | 2018-02-09 06:17 | External Medical Summary | Continuity of Care Document ---
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 Provider: Steven LAM, W/out Hemorrhage, 7 700 Makayla PO Box Second Medical Lavern L, 1522, TrimesterEncounte Center [address] [place] [address], for suprvsn of Juan Parham, normal , 120, [place] [id number], [facility] Juan Boyd 120, [place] [id number] weeks Oliver RAMOS, tel:[phone] gestation of [id number] [place], , [place]. [id number]. tel: tel:[phone] Rob Boyd Encounter for Nov-2 Lavern Referring In Womens suprvsn of normal 0-201 Makayla. Provider: Steven LAM, , second 7 700 Makayla [address] [id number] weeks Medical Lavern L, 1522, gestation of Center [address] [place] [address], Juan Parham, 120, [place] [id number], Oliver [facility] 120, [place] Oliver RAMOS, tel:[phone] [place], , [place]. [id number]. tel: tel:[phone] Rob Boyd Encounter for Nov-2 Lavern Referring In Womens Ultrasound suprvsn of normal 0-201 Makayla. Provider: Steven LAM, , second 7 700 Makayla [address] Box [id number] weeks Medical Lavern L, 1522, gestation of [address], Jaun Parham, 120, [place] [id number], Oliver [facility] 120, [place] Oliver RAMOS, tel:+ [phone] [place], , [place]. [id number]. tel: tel:[phone] Rob Boyd Encounter for Oct-3 Lavern Referring In Womens suprvsn of normal 0-201 Makayla. Provider: Steven LAM, , second 7 700 Makayla PO Box [email or web address] weeks Medical Lavern Forte, 1522, gestation of Center [address] [place] [address], , [facility], 120, [place] [id number], Oliver, [facility] 120, [place] Oliver RAMOS, tel:+ [phone] [place], , [place]. [id number]. tel: tel:[phone] Rob Boyd Encounter for Sep-2 Eliecer Referring In Womens suprvsn of normal 7-201 Thai. 700 Provider: Steven LAM, , first 7 Medical Makayla [address] Box [email or web address] weeks [place] Lavern oFrte, 1522, gestation [address], 120, [facility] RACHEL, [place], [place] [id number], [place], [facility] 120, [place] [id number] [place], tel: , [place]. [place], tel: [phone]. [id number] tel:[phone] Rob Boyd Encounter for Sep-2 Lavern Referring In Womens Ultrasound suprvsn of normal 7-201 Makayla. Provider: Steven LAM, , first 7 700 Makayla [address] Box [id number] weeks Medical Lavern Forte, 1522, gestation of Center [address] [place] [address], , [facility], 120, [place] [id number], Oliver, [facility] 120, [place] Oliver RAMOS, tel:+ [phone] [place], , [place]. [id number]. tel: tel:[phone] Rob Boyd Encntr screen for Sep-1 Lavern Referring In Womens infections w sexl 1-201 Makayla. Provider: Steven LAM, mode of 7 700 Makayla PO Box transmissEncounte [facility] Lavern Forte, 1522, r for screening [address], for oth , [facility], infec/parastc 120, Center [id number], diseasesEncounter Oliver, [facility] 120, [place] for suprvsn of Oliver RAMOS, tel:+ normal , [phone] [place], first , [place]. [id number]. 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 Provider: Steven LAM, (routine) w/o abn 7 700 Makayla PO Box findings Medical Lavern L, 1522, Center [address] Dr Fidel, [facility] [place], 120, Center [id number], [facility] 120, [place] Oliver RAMOS, tel:+ [phone] [place], , [place]. [id number]. tel: tel:[phone] Rob Boyd Remigio- Lavern Referring In Womens Follow-Up, 6- Makayla. Provider: Steven LAM, Routine 6 700 Makayla PO Box Medical Lavern L, 1522, Center [address], [facility] [place], 120, Center [id number], Oliver [facility] 120, [place] Oliver RAMOS, tel:+ [phone] [place], , [place]. [id number]. tel: tel:[phone] Rob Boyd Apr-0 Lavern Referring In Womens 6-201 Makayla. Provider: Steven LAM, 6 700 Makayla PO Box Medical Lavern L, 1522, Center [address] Dr Fidel, [facility] [place], 120, Center [id number], [facility] 120, [place] Oliver RAMOS, tel:[phone] [place], , [place]. [id number]. tel: tel:[phone] Rob Boyd Aug-2 Lavern Referring In Womens 9-201 Makayla. Provider: Steven LAM, 5 700 Makayla PO Box Medical Lavern L, 1522, Center [address] Dr Fidel, [facility] [place], 120, Center [id number], [place], [facility] 120, Oliver RAMOS, tel: [phone] [place], , [place]. [id number]. tel: tel: [phone] Rob Boyd Pap Smear Lavern Referring In [facility] Screening, Cervix 2-201 Makayla. Provider: Health [place], 5 700 Makayla PO Box Medical [facility] L, 1522, [place] [address], [facility] [place], 120, [place] [id number], [place], [facility] 120, RACHEL, [place], tel:[phone] [place], , . [id number]. tel: tel: [phone] Rob Boyd Mercedes In Womens 1-201 Shannan. Health [place], 5 700 PO Box Medical 1522, [place] Dr Fidel, [facility] [place], 120, [id number], Boyd, RACHEL, tel: [phone] , [place]. tel: [phone] Family History Family Member Diagnosis Age At [...] name Insurance type Covered democrat ID Authorization(s) [facility] [id number] [facility] [id number] [facility] [id number] Social History Type Description Quantity Date Captured [...] (WPMPap1) Future Order: Radiology Order Nuchal Translucency ([id number]) Ordered Future Order: Radiology Order Complete OB Ultrasound > 14 Ordered Weeks ([id number]) Date Type Problem Goal Intervention Status Start [...]
--- OUTSIDE RECORDS SUMMARY | 2018-02-09 06:17 | External Medical Summary | Continuity of Care Document ---
:1990 Author Organization [facility] Address [address] [place], [place] [id number] Phone Support Name Relationship Address Phone Jamie Darling spouse [phone] [place] [address] Allergies, Adverse Reactions, Alerts Substance Reaction Severity Status CAT HAIR STANDARDIZED ALLERGENIC EXTRACT burning eyes Unknown Active Medications Medication Instructions Dosage Effective Dates Status Comments (start - stop) *BETAMETH APPLY SPARINGLY AFTER - Active AMY/MUP/NYST 1:1:1 EACH FEEDING DO NOT OINT WASH OR WIPE OFF Problems Condition Effective Dates (start - stop) Clinical Status 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 Provider: est,18-39 yrs Health PA, patient well (general) 700 Makayla [address], woman exam (routine) Medical Fidel Enrique [place], (chief w/o abn Center , [id number], complaint) findings Juan 120, Medical [address] tel:-[phone] [place], Juan 120, [id number], [place] Oliver. RACHEL, tel:[phone]. [id number] tel:[phone] Rob Boyd Lavern In Womens -2015 Makayla. Health CAROLE, 700 [address], Medical Fidel [place], Center , [id number], Juan 120, [place], tel:+[phone] [place], [id number], . tel:[phone] Rob Boyd Lavern Referring In Womens Follow-Up, nda. Provider: Steven LAM, Routine 700 Makayla [address], Medical [place], [place] Martina Parham [id number], Juan 120, [facility] tel:[phone] [place], Juan 120, [id number], [facility]. [place], tel:[phone]. [id number] tel:[phone] Rob Boyd Lavern Referring In Womens -2015 Makayla. Provider: Steven LAM, 700 Makayla [address], Medical Fidel Enrique [place], [place] Martina Parham [id number], Juan 120, [facility] tel:[phone] [place], Juan 120, [id number], [facility]. [place], tel:[phone]. [id number] tel:[phone] Rob Boyd Lavern Referring In Womens -2014 Makayla. Provider: Steven LAM, 700 Makayla [address], Medical [place], [place] Martina Parham [id number], Juan 120, [facility] tel:[phone] [place], Juan 120, [id number], [facility]. [place], tel:[phone]. [id number] tel:[phone] Rob Boyd Pap Smear Lavern Referring In Womens Screening, . Provider: Steven LAM, Cervix 700 Makayla [address], Medical Fidel Enrique [place], Center Martina Parham [id number], Juan 120, [facility] tel:[phone] [place], Juan 120, [id number], [facility]. [place], tel:[phone]. [id number] tel:[phone] Associates Oliver Mercedes In Women -[address] Shannan[address] [place] [address], Medical [address], Center Fidel [place]ham, [place], Juan 120, [id number], [place], [place], tel:[phone], [address] [place]. tel:[phone] Family History Family Member Diagnosis Age At Onset No family history of Venous Thrombosis No family history of Pulmonary Embolism Father Stroke Immunizations Vaccine Date Status Comments Tdap completed Source: New Immunization Record Influenza, seasonal, injectable, completed Source: Source Unspecified preservative free, 3 yrs or older Payers Payer name Insurance type Covered constitution party ID Authorization(s) [facility] [id number] [facility] [id number] Social History Type Description Quantity Date Captured [...] Plan Of Care Date Type Action Status Future Order: Lab Order Pap Smear With [...]
--- OUTSIDE RECORDS SUMMARY | 2018-02-09 06:17 | External Medical Summary | Continuity of Care Document ---
:1990 Author Organization [facility] Allergies Active Description Code Type Severity Reaction Onset Reported/ Identified Relationship Clinical to Patient Status Yes CAT HAIR 80217 1 N/A burning STANDARDIZED eyes ALLERGENIC EXTRACT Yes CAT HAIR STD 58623 1 N/A burning ALLERGENIC eyes EXT Yes cat dander Aller M N/A 02/25/2016 gy Yes Cat/Feline cat Aller M N/A 02/25/2016 Products dande gy r Medications Medication Packaging Start Date Stop Route Dosage Sig Date TAB 03/15/2016 1-2 Q4H Hydrocodone/Adalberto taminophen MG 03/15/2016 240 DAILY Docusate Calcium MG 03/15/2016 800 Q8HMC Ibuprofen Gram 03/21/2016 05/10/20 Add MUPIROCIN 16 Betamethasone ointment 0.1% (15gms) to which is added Nystatin powder to a concentration of 2% Nystatin. Apply sparingly after each feeding. Do not wash or wipe off. Package 04/21/2016 05/26/20 take QUETA 17 1 tablet by oral route every day Unspecified 05/10/2016 07/17/20 APPLY MUPIROCIN 17 SPARINGLY AFTER EACH FEEDING DO NOT WASH OR WIPE OFF 01/25/2018 PO 500 mg Q5H Tylenol 01/25/2018 PO 1 each DAILY Tablet 01/25/2018 PO 500 mg PRN Tums Problems Date Dx Attending Type Code Diagnosis Diagnosed By Coded 08/19/2015 Makayla Puckett Z12.4 Pap Smear L Screening, Cervix 08/19/2015 Makayla Puckett Z34.01 Routine Care, L Primagravida 08/19/2015 Makayla Puckett Z3A.10 10 weeks gestation L of 08/31/2015 Makayla Puckett Z34.01 Encntr for suprvsn L of normal first preg, first trimester 09/03/2015 Makayla Puckett Z34.01 Encntr for suprvsn L of normal first preg, first trimester 09/03/2015 Makayla Puckett Z3A.12 12 weeks gestation L of 09/07/2015 Makayla Puckett Z34.01 Encntr for suprvsn L of normal first preg, first trimester 09/07/2015 Makayla Puckett Z3A.12 12 weeks gestation L of 09/08/2015 Makayla Puckett Z34.01 Routine Care, L Primagravida 09/08/2015 Makayla Puckett Z3A.12 12 weeks gestation L of 10/05/2015 Makayla Puckett Z34.02 Routine Care, L Primagravida 10/05/2015 Makayla Puckett Z3A.16 16 weeks gestation L of 10/21/2015 Makayla Puckett Z34.02 Encntr for suprvsn L of normal first preg, second trimester 10/21/2015 Makayla Puckett Z3A.19 19 weeks gestation L of 08/02/2017 Makayla Puckett W Z34.81 Encounter for L suprvsn of normal , first trimester 08/02/2017 Makayla Puckett Z3A.12 12 weeks gestation L of 08/02/2017 Thai Gonzáles Z34.81 Encounter for suprvsn of normal , first trimester 08/02/2017 Thai Gonzáles Z3A.12 12 weeks gestation of 09/25/2017 Makayla Puckett Z34.82 Encounter for L suprvsn of normal , second trimester 09/25/2017 Makayla Puckett Z3A.20 20 weeks gestation L of 12/04/2017 Makayla Puckett O44.43 Low Lying Placenta L Nos Or W/out Hemorrhage, Third Trimester 12/04/2017 Makayla Puckett Z3A.30 30 weeks gestation L of Procedures Code Description [place] [address] Venpnctr 08/17/2015 fngr/heel/ear stick routne 96486 OB Visit No 08/17/2015 Charge 84467 Obstetric 08/17/2015 profile 96232 Cult, bactr, 08/17/2015 han colonycnt, urine 34176 Infct Antigen, 08/17/2015 HIV-1/2 Antigen/Antibodies 4th Gen 26548 Infct antign, 08/17/2015 chlamydia trac, ampl 83695 Infct antign, 08/17/2015 neisseria loida, ampl 82594 Specimen 08/17/2015 handling/transport 20822 Venpnctr 08/26/2015 fngr/heel/ear stick routne 25610 Antibody, 08/26/2015 parvovirus 92149 Ultrasound, 09/03/2015 Nuchal Translucency Measurement 59576 Venpnctr 09/03/2015 fngr/heel/ear stick routne 14522 OB Visit No 09/03/2015 Charge 62709 Assay, 09/03/2015 chemiluminescence 96247 PAPPA, SERUM 09/03/2015 41867 Venpnctr 09/30/2015 fngr/heel/ear stick routne 11619 OB Visit No 09/30/2015 Charge 29732 09/30/2015 Alpha-fetoprotein, serum 36866 Ultrasnd exam of 10/21/2015 preg uterus, compl 88788 Ultrasound, 08/02/2017 Nuchal Translucency Measurement 51284 OB Visit No 08/02/2017 Charge 78023 Ultrasnd exam of 09/25/2017 preg uterus, compl 45522 Ultrasnd preg 12/04/2017 uterus, flwup/repeat Results There is no data. Encounters ACCT No. Visit Discharge Status Pt. Type Provider Facility Loc./Unit Complaint Date/Time [id number] 02/05/2018 02/05/2018 CLS Outpatient Lavern, 13:05:00 23:59:59 Makayla L [id number] 02/05/2018 02/05/2018 CLS Outpatient Lavern, 11:30:00 23:59:59 Makayla L [id number] 01/29/2018 01/29/2018 CLS Outpatient Lavern, 11:30:00 23:59:59 Makayla L [id number] 01/22/2018 01/22/2018 CLS Outpatient Lavern, 11:30:00 23:59:59 Makayla L [id number] 01/15/2018 01/15/2018 CLS Outpatient Lavern, 11:30:00 23:59:59 Makayla L [id number] 01/01/2018 01/01/2018 CLS Outpatient Lavern, 09:45:00 23:59:59 Makayla L [id number] 12/18/2017 12/18/2017 CLS Outpatient Lavern, 11:30:00 23:59:59 Makayla L [id number] 12/04/2017 12/04/2017 CLS Outpatient Lavern, 11:30:00 23:59:59 Makayla L [id number] 12/04/2017 12/04/2017 CLS Outpatient Lavern, 11:15:00 23:59:59 Makayla L [id number] 11/20/2017 11/20/2017 CLS Outpatient Lavern, 09:30:00 23:59:59 Makayla L [id number] 10/23/2017 10/23/2017 CLS Outpatient Lavern, 11:15:00 23:59:59 Makayla L [id number] 09/25/2017 09/25/2017 CLS Outpatient Lavern, 13:15:00 23:59:59 Makayla L [id number] 09/25/2017 09/25/2017 CLS Outpatient Lavern, 12:45:00 23:59:59 Makayla L [id number] 09/04/2017 09/04/2017 CLS Outpatient Lavern, 13:15:00 23:59:59 Makayla L [id number] 08/02/2017 08/02/2017 CLS Outpatient Eliecer, 16:30:00 23:59:59 Thai R [id number] 08/02/2017 08/02/2017 CLS Outpatient Lavern, 15:45:00 23:59:59 Makayla L [id number] 07/17/2017 07/17/2017 CLS Outpatient Lavern, 15:00:00 23:59:59 Makayla L [id number] 05/26/2017 05/26/2017 CLS Outpatient Lavern, 14:50:00 23:59:59 Makayla L [id number] 05/10/2016 05/10/2016 CLS Outpatient Lavern, 14:12:00 23:59:59 Makayla L [id number] 04/21/2016 04/21/2016 CLS Outpatient Lavern, 15:40:00 23:59:59 Makayla L [id number] 04/06/2016 04/06/2016 CLS Outpatient Lavern, 12:01:00 23:59:59 Makayla L [id number] 03/21/2016 03/21/2016 CLS Outpatient Lavern, 13:23:00 23:59:59 Makayla L [id number] 03/14/2016 03/14/2016 CLS Outpatient Lavern, 12:42:00 23:59:59 Makayla L [id number] 03/10/2016 03/10/2016 CLS Outpatient Lavern, 10:00:00 23:59:59 Makayla L [id number] 03/03/2016 03/03/2016 CLS Outpatient Lavern, 16:00:00 23:59:59 Makayla L [id number] 03/01/2016 03/01/2016 CLS Outpatient Lavern, 16:07:00 23:59:59 Makayla L [id number] 02/18/2016 02/18/2016 CLS Outpatient Lavern, 16:05:00 23:59:59 Makayla L [id number] 02/10/2016 02/10/2016 CLS Outpatient Lavern, 14:00:00 23:59:59 Makayla L [id number] 01/28/2016 01/28/2016 CLS Outpatient Lavern, 15:40:00 23:59:59 Makayla L [id number] 01/14/2016 01/14/2016 CLS Outpatient Lavern, 13:45:00 23:59:59 Makayla L [id number] 12/31/2015 12/31/2015 CLS Outpatient Lavern, 16:15:00 23:59:59 Makayla L [id number] 12/10/2015 12/10/2015 CLS Outpatient Lavern, 14:40:00 23:59:59 Makayla L [id number] 11/19/2015 11/19/2015 CLS Outpatient Lavern, 16:15:00 23:59:59 Makayla L [id number] 10/21/2015 10/21/2015 CLS Outpatient Lavern, 11:30:00 23:59:59 Makayla L [id number] 10/21/2015 10/21/2015 CLS Outpatient Lavern, 11:15:00 23:59:59 Makayla L [id number] 09/30/2015 09/30/2015 CLS Outpatient Lavern, 16:00:00 23:59:59 Makayla L [id number] 09/28/2015 09/28/2015 CLS Outpatient Lavern, 15:45:00 23:59:59 Makayla L [id number] 09/03/2015 09/03/2015 CLS Outpatient Lavern, 14:05:00 23:59:59 Makayla L [id number] 09/03/2015 09/03/2015 CLS Outpatient Lavern, 13:45:00 23:59:59 Makayla L [id number] 09/01/2015 09/01/2015 CLS Outpatient Lavern, 15:43:00 23:59:59 Makayla L [id number] 08/26/2015 08/26/2015 CLS Outpatient Lavern, 08:18:00 23:59:59 Makayla L [id number] 08/25/2015 08/25/2015 CLS Outpatient Lavern, 16:35:00 23:59:59 Makayla L [id number] 08/17/2015 08/17/2015 CLS Outpatient Lavern, 15:00:00 23:59:59 Makayla L [id number] 07/06/2015 07/06/2015 CLS Outpatient Mercedes, 17:01:00 23:59:59 Shannan Hsieh [id number] 02/12/2018 PEN Preadmit 1455 00:00:00 [id number] 03/30/2016 Document [id number] 15:17:00 Registration
--- OUTSIDE RECORDS SUMMARY | 2018-02-09 06:17 | External Medical Summary | Continuity of Care Document ---
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 (general) - (routine) w/o abn findings Follow-Up, Routine - Low Lying Placenta Nos Or W/out - Hemorrhage, Third Trimester Encounter for suprvsn of normal - , third trimester 28 weeks gestation of - Encntr screen for [...] Third Trimester 30 weeks gestation of - Pap Smear Screening, [...] third trimester 30 weeks gestation of - Active Procedures Procedure Date OB Visit No Charge - 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 Hemoglobin count, colorimetric Hematocrit blood count Glucose test Venpnctr fngr/heel/ear stick routne Results Test Name Date and Time Measure Units Reference Range Abnormal Flag Comments Panel Description: Glucose [Mass/volume] in Serum or Plasma --1 hour post 50 g glucose PO GLUCOSE, GESTATIONAL 89 mg/dL <140 N Test performed at [employer] SCREEN (50G)-140 10:50:00 DIAGNOSTICS [id number] [place] [address]Ccsolzcj: GIOVANY PEREZ DO,MPH Panel Description: HEMOGLOBIN + HEMATOCRIT HEMOGLOBIN 10:50:00 12.5 g/dL 11.7-15.5 N HEMATOCRIT 10:50:00 37.9 % 35.0-45.0 N REPORT COMMENT:FASTING :NOTest performed at [email or web address] [id number] [place] [address]Cftqfblv: GIOVANY PEREZ DO,MPH Advance Directives Directive Yes / No Effective Date File Name Unknown Encounters Encounter Practice Location Reason(s) Diagnoses Date Provider Care Team Description For Visit Members Rob Boyd Encounter for Lavern Referring In Womens suprvsn of normal 9-201 Makayla. Provider: Health PA, , third 8 700 Makayla [address] [email or web address] weeks Medical Lavern L, 1522, gestation of Center [address] [place] [address], Juan Parham, 120, Center [id number], [facility], [place] Oliver RAMOS, tel:+ [phone] [place], , [place]. [id number]. tel: tel:[phone] Associates [facility] Low Lying Rob-2 Lavern Referring In Womens Ultrasound Placenta Nos Or 9-201 Makayla. Provider: Health PA, W/out Hemorrhage, 8 700 Makayla [address] [id number] Medical Lavern L, 1522, weeks gestation Center [address] [place], [place] [address]ta, of Juan Parham, 120, Center [id number], [facility], [place] Oliver RAMOS, tel:[phone] [place], , [place]. [id number]. tel: tel:[phone] Associates [facility] Low Lying Rob-1 Lavern Referring In Womens Placenta Nos Or 5-201 Makayla. Provider: Health CAROLE, W/out Hemorrhage, 8 700 Makayla [address] Medical Lavern L, 1522, Trimester[facility]ounte [facility] [place], r for suprvsn of Juan Parham, normal , 120, Center [id number], third [email or web address] Oliver [facility] 120, [place] weeks gestation Oliver RAMOS, tel:+ [phone] [place], , [place]. [id number]. tel: tel:[phone] Rob Boyd Low Lying Dec-1 Lavern Referring In Womens Placenta Nos Or 8-201 Makayla. Provider: Health CAROLE, W/out Hemorrhage, 7 700 Makayla [address] Medical Lavern L, 1522, Trimester[facility]ounte Center [address] [place], [place] [address]ta, r for supryaredn of Juan Parham, normal , 120, Center [id number], second Oliver [facility] 120, [place] [email or web address] weeks Oliver RAMOS, tel:+[phone] of [phone] [place], , [place]. [id number]. tel: tel:[phone] Rob Boyd Encounter for Nov-2 Lavern Referring In Womens suprvsn of normal 0-201 Makayla. Provider: Health CAROLE, , second 7 700 Makayla [address] [email or web address] weeks Medical Lavern L, 1522, gestation of Center 700 [place], Juan Parham [place], 120, Center [id number], Oliver, [facility] 120, [place] Oliver RAMOS, tel:[phone] [place], , [place]. [id number]. tel: tel:[phone] Rob Boyd Encounter for Nov-2 Lavern Referring In Womens Ultrasound suprvsn of normal 0-201 Makayla. Provider: Steven LAM, , second 7 700 Maakyla [address] [email or web address] weeks Medical Lavern L, 1522, gestation of Center 700 [place], Juan Parham [place], 120, [place] [id number], Oliver, [facility] 120, [place] Oliver RAMOS, tel:[phone] [place], , [place]. [id number]. tel: tel:[phone] Rob Boyd Encounter for Oct-3 Lavern Referring In Womens suprvsn of normal 0-201 Makayla. Provider: Steven LAM, , second 7 700 Makayla [address] [email or web address] weeks Medical Lavern L, 1522, gestation of Center 700 [place], Juan Parham [place], 120, [place] [id number], Oliver, [facility] 120, [place] Oliver RAMOS, tel:[phone] [place], , [place]. [id number]. tel: tel:[phone] Rob Boyd Encounter for Sep-2 Eliecer Referring In Womens suprvsn of normal 7-201 Thai. 700 Provider: Steven LAM, , first 7 Medical Makayla [address] [email or web address] weeks Center Lavern L, 1522, gestation of Juan [place]ham [place], 120, Medical Oliver RAMOS, Center [id number], RACHEL, Juan 120, [place] [id number] Oliver, tel:+[phone] , [place]. [place] tel: [phone]. [id number] tel:[phone] Rob Boyd Encounter for Sep-2 Lavern Referring In Womens Ultrasound suprvsn of normal 7-201 Makayla. Provider: Steven LAM, , first 7 700 Makayla [address] [email or web address] weeks Medical Lavern L, 1522, gestation of Center [facility] [place], , [facility], 120, [place] [id number], Oliver, [facility] 120, [place] Oliver RAMOS, tel: [phone] [place], , [place]. [id number]. tel: tel:[phone] Rob Boyd Encntr screen for Sep-1 Lavern Referring In Womens infections w sexl 1-201 Makayla. Provider: Steven LAM, mode of 7 700 Makayla PO Box transmissEncounte Medical Lavern L, 1522, r for screening Center [address] [place] [address], for oth , [facility], infec/parastc 120, [place] [id number], diseasesEncounter Oliver, [facility] 120, [place] for suprvsn of Oliver RAMOS, tel: normal , [phone] [place], first , [place]. [id number]. trimesterEncounte tel: tel: r for [phone] screening of [id number] weeks gestation of Associates [facility] Encntr for heel cover softener Aj-2 Lavern Referring In Womens exam (general) 1-201 Makayla. Provider: Steven LAM, (routine) w/o abn 7 700 Makayla PO Box findings Medical Lavern L, 1522, Center [facility] [address] Fidel, [facility], 120, [place] [id number], [facility] 120, [place] Oliver RAMOS, tel: [phone] [place], , [place]. [id number]. tel: tel:[phone] Rob Boyd Remigio-1 Lavern Referring In Womens Follow-Up, 6-201 Makayla. Provider: Steven LAM, Routine 6 700 Makayla PO Box Medical Lavern Forte, 1522, Center [facility] [place], [facility], 120, Center [id number], [facility] 120, [place] Oliver RAMOS, tel:[phone] [place], , [place]. [id number]. tel: tel:[phone] Rob Boyd Feb-0 Lavern Referring In Womens 6-201 [place]. Provider: Steven LAM, 6 700 [facility] Medical Lavern L, 1522, Center [facility] [address] Fidel, [facility], 120, Vaugh[place] [id number], [facility] 120, Oliver RAMOS, tel:[phone] [place], , [place]. [id number]. tel: tel:[phone] Rob Boyd Lavern Referring In Womens 9-201 Makayla. Provider: Steven LAM, 5 700 [facility] L, 1522, Center [facility] [address] Fidel, [facility], 120, [place] [id number], [facility] 120, Oliver RAMOS, tel:[phone] [place], , [place]. [id number]. tel: tel:[phone] Rob Boyd Pap Smear Lavern Referring In Womens Screening, Cervix 2-201 [place]. Provider: Steven LAM, 5 700 [facility] Medical [facility] L, 1522, Center [facility] [address] Fidel, [facility], 120, [place] [id number], [facility] 120, Oliver RAMOS, tel:[phone] [place], , [place]. [id number]. tel: tel:[phone] Rob Boyd Jun- Mercedes In Womens 1-201 Shannan. Health CAROLE, 5 700 [facility] [address], [address] Dr Fidel, [facility] [place], 120, [id number] [place], RACHEL, tel:[phone] , [place]. tel: [phone] Family History Family Member Diagnosis Age At [...] older Payers Payer name Insurance type Covered green party ID Authorization(s) [id number] [facility] [id number] [facility] [id number] Social History Type Description Quantity Date Captured Alcohol Use Details No Caffeine Use Details Unknown 3 cups per day Tobacco Use Status Never smoked tobacco Smoking Status Never smoker Vital Signs Date / Height Weight BMI Pulse Blood Temperature Respiratory Body Head BMI Time: Rate Pressure Rate Surface Circumference percentile Area 175.20 31.0 107/71 2018 lbs 3 mm[Hg] 9:52 kg/m AM eter (2) Chief Complaint And Reason For [...] Future Order: Radiology Order Ultrasound OB Follow-up ([id number]) Ordered Future Order: Lab Order Pap Smear With HPV Reflex If ASCUS Ordered ([id number]) Future Order: Radiology Order Nuchal Translucency ([id number]) Ordered Future Order: Radiology Order Complete OB Ultrasound > 14 Ordered Weeks ([id number]) Date Type Problem Goal Intervention Status Start [...]
--- OUTSIDE RECORDS SUMMARY | 2018-02-09 06:17 | External Medical Summary | Continuity of Care Document ---
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 Provider: Health CAROLE, , second 7 700 Makayla [address] [email or web address] weeks Medical Lavern L, 1522, gestation of Center [address] [place] [address], , [facility], 120, [place] [id number], [place], [facility] 120, [place] RAMOS, tel:[phone] [place], , [place]. [id number]. tel: tel:[phone] Rob [place] Encounter for Lavern Referring In Womens Ultrasound suprvsn of normal 0-201 Makayla. Provider: Steven LAM, , second 7 700 Makayla [address] [email or web address] weeks Medical Lavern L, 1522, gestation of Center [facility] [place], , [facility], 120, [place] [id number], [place], [facility] 120, [place] RAMOS, tel:[phone] [place], , [place]. [id number]. tel: tel:[phone] [place] Encounter for Aug- Lavern Referring In Womens suprvsn of normal 0-201 Makayla. Provider: Health CAROLE, , second 7 700 Makayla PO Box weeks Medical Lavern L, 1522, gestation of [address], [address] [facility] Sreedhar RAMOS, 120, [place] [id number], [place], [facility] 120, [place] RAMOS, tel:[phone] [place], , [place]. [id number]. tel: tel:[phone] [place] Encounter for Jul- Eliecer Referring In Womens suprvsn of normal 7-201 Thai. 700 Provider: Health CAROLE, , first 7 Medical Makayla [address] [id number] weeks Center Lavern Forte, 1522, gestation of Juan Parham, 120, Medical Oliver RAMOS, [place] [id number], [facility] 120, [place] [id number] [place], tel:+ , [place]. [place], tel:[phone]. [id number] tel:[phone] Rob [place] Encounter for Sep-2 Lavern Referring In Womens Ultrasound suprvsn of normal 7-201 Makayla. Provider: Steven LAM, , first 7 700 Makayla [address] Box [email or web address] weeks Medical Lavern Forte, 1522, gestation of Center [facility] [place], , [facility], 120, [place] [id number], [facility], [place], tel:[phone] [place], , [place]. [id number]. tel: tel:[phone] Rob [place] Encntr screen for Sep-1 Lavern Referring In Womens infections w sexl 1-201 Makayla. Provider: Steven LAM, mode of 7 700 Makayla PO Box transmissEncounte Medical Lavern Forte, 1522, r for screening Center [address] [place] [address], for oth [facility] RACHEL, infec/parastc 120, Center [id number], diseasesEncounter [place], [facility] 120, [place] for suprvsn of [place] RAMOS, tel: normal , [phone] [place], first , [place]. [id number]. 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 Provider: Steven LAM, (routine) w/o abn 7 700 Makayla PO Box findings Sreedhar Forte, 1522, Center [facility] [place], [facility] RACHEL, 120, [place] [id number], [facility] 120, [place] RAMOS, tel:[phone] [place], , [place]. [id number]. tel: tel:[phone] Rob [place] Remigio-1 Lavern Referring In Womens Follow-Up, 6-201 Makayla. Provider: Steven LAM, Routine 6 700 Makayla PO Box Medical Lavern L, 1522, Center [address] Dr Fidel, [facility], 120, Center [id number], [place], [facility] 120, [place] RAMOS, tel:[phone] [place], , [place]. [id number]. tel: tel:[phone] Rob [place] Apr-0 Lavern Referring In Womens 6-201 Makayla. Provider: Steven LAM, 6 700 Makayla PO Box Medical Lavern L, 1522, Center [address] Dr [address]idel, [facility], 120, Center [id number], [place], [facility] 120, [place] RAMOS, tel:[phone] [place], , [place]. [id number]. tel: tel:[phone] Rob [place] Oct-2 Lavern Referring In Womens 9-201 Makayla. Provider: Steven LAM, 5 700 Makayla PO Box Medical Lavern L, 1522, Center [address] Dr Fidel, [facility], 120, Center [id number], [place], [facility] 120, [place] RAMOS, tel:[phone] [place], , [place]. [id number]. tel: tel:[phone] Rob [place] Pap Smear Oct-1 Lavern Referring In Womens Screening, Cervix 2-201 Makayla. Provider: Steven LAM, 5 700 Makayla PO Box Medical Lavern L, 1522, Center [facility] Dr Fidel, [facility], 120, Center [id number], [place], [facility] 120, [place] RAMOS, tel:[phone] [place], , [place]. [id number]. tel: tel:[phone] Rob [place] Aug-3 Mercedes In Womens 1-201 Shannan. [facility], 5 700 [facility] 1522, [place] Dr Fidel, [facility], 120, [id number], [place], [place], tel:[phone] , . tel: [phone] Family History Family Member Diagnosis Age At [...] name Insurance type Covered democrat ID Authorization(s) [facility] [id number] [facility] [id number] [facility] [id number] Social History Type Description Quantity Date Captured [...] Laura Darling BOOKED Future Order: Radiology Order Complete OB Ultrasound > 14 Ordered Weeks ([id number]) Future Order: Lab Order Pap Smear With HPV Reflex If ASCUS Ordered ([id number]) Future Order: Radiology Order Nuchal Translucency ([id number]) Ordered Date Type Problem Goal Intervention Status [...]
--- OUTSIDE RECORDS SUMMARY | 2018-02-09 06:17 | External Medical Summary | Continuity of Care Document ---
:1990 Author Organization [facility] Address [address] [place], [place] [id number] Phone Support Name Relationship Address Phone Jamie Darling spouse [phone] [place] [address] Allergies, Adverse Reactions, Alerts Substance Reaction Severity Status CAT HAIR STANDARDIZED ALLERGENIC EXTRACT burning eyes Unknown Active Medications Medication Instructions Dosage Effective Dates Status Comments (start - stop) Tums 200 mg chew 1 - 2 Tablet by Not Available - Active calcium (500 mg) Oral route every chewable tablet day Vitamin take 1 tablet by Not Available - Active tablet oral route every day Tylenol Extra take 2 tablet by 1000 MG - Active Strength 500 mg oral route every 6 tablet hours as needed as needed Problems Condition Effective Dates (start - stop) Clinical Status 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 for 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 Provider: Steven LAM, , second 7 700 Makayla [address] Box [id number] weeks Medical Lavern Forte, 1522, gestation of Center [address] [place] [address], , [facility] [place], 120, [place] [id number], [place], [facility] 120, [place] RAMOS, tel:[phone] [place], , [place]. [id number]. tel: tel:[phone] Rob [place] Encounter for Sep-2 Eliecer Referring In Womens suprvsn of normal 7-201 Thai. 700 Provider: Steven LAM, , first 7 Medical Makayla PO Box [id number] weeks [place] Lavern Forte, 1522, gestation of Dr [facility] Martina LouiseM[facility], 120, Medical [facility] [id number], [place], [facility] 120, [place] [id number] [place], tel: , [place]. [place], tel: [phone]. [id number] tel:[phone] Rob [place] Encounter for Sep-2 Lavern Referring In Womens Ultrasound suprvsn of normal 7-201 Makayla. Provider: Steven LAM, , first 7 700 Makayla PO Box [id number] weeks Medical Lavern Forte, 1522, gestation of Center [address] [place] [address], , [facility] [place], 120, [place] [id number], [place], [facility] 120, [place] RAMOS, tel: [phone] [place], , [place]. [id number]. tel: tel:[phone] Rob [place] Encntr screen for Sep-1 Lavern Referring In Womens infections w sexl 1-201 Makayla. Provider: Steven LAM, mode of 7 700 Makayla PO Box transmissEncounte [facility] Lavern Forte, 1522, r for screening [address], for oth , [facility], infec/parastc 120, Center [id number], [facility] 120, [place] for suprvsn of [place] RAMOS, tel:[phone] normal , [phone] [place], first , [place]. [id number]. trimesterEncounte tel: tel:[phone] r for [phone] screening of lpebgg67 weeks gestation of [facility] [place] Encntr for lens generator May-2 Lavern Referring In Womens exam (general) 1- Makayla. Provider: Steven LAM, (routine) w/o abn 7 700 Makayla PO Box findings Medical Lavern L, 1522, Center [address], [facility], 120, Center [id number], [facility] 120, [place] RAMOS, tel:[phone] [place], , [place]. [id number]. tel: tel:[phone] Rob [place] Remigio-1 Lavern Referring In Womens Follow-Up, 6- Makayla. Provider: Steven LAM, Routine 6 700 Makayla PO Box Medical Lavern L, 1522, Center [address], [facility], 120, Center [id number], [facility] 120, [place] RAMOS, tel:[phone] [place], , [place]. [id number]. tel: tel:[phone] Rob [place] Apr-0 Lavern Referring In Womens 6-201 Makayla. Provider: Steven LAM, 6 700 Makayla PO Box Medical Lavern L, 1522, Center [address] Dr [address], [facility], 120, Center [id number], Oliver [facility] 120, [place] RAMOS, tel:[phone] [place], , [place]. [id number]. tel: tel:[phone] Rob [place] Aug-2 Lavern Referring In Womens -201 Makayla. Provider: Steven LAM, 5 700 Makayla PO Box Medical Lavern L, 1522, Center [address], [facility], 120, Center [id number], [place], [facility] 120, [place] RACHEL, [place], tel: [phone] [place], , [place]. [id number]. tel: tel: [phone] [facility] [place] Pap Smear Lavern Referring In Women Screening, Cervix 2-201 Makayla. Provider: Health [place], 5 700 Makayla PO Box Medical [facility] L, 1522, [place] [address], [facility], 120, [place] [id number], [place], [facility] 120, R[place], [place], tel: [phone] [place], , [place]. [id number]. tel: tel: [phone] Rob [place] Mercedes In Womens 1-201 Shannan. [facility] [place], 5 700 PO Box Medical 1522, [place] Dr Fidel, [facility] [place], 120, [id number], [place], RACHEL, tel: [phone] , [place]. tel: [phone] Family History Family Member Diagnosis Age At [...] name Insurance type Covered republican ID Authorization(s) [facility] [id number] [facility] [id number] [facility] [id number] Social History Type Description Quantity Date Captured Alcohol Use Details No Caffeine Use Details Unknown Tobacco Use Status Unknown Smoking Status Never smoker Vital Signs Date / Height Weight BMI Pulse Blood Temperature Respiratory Body Head BMI Time: Rate Pressure Rate Surface Circumference percentile Area 168.80 29.9 111/72 -2017 lbs 0 mm[Hg] 1:22 kg/m PM eter (2) Chief Complaint And Reason For Visit Unknown Chief Complaint And Reason For Visit Reason For Referral Reason For Referral Unknown Plan Of Care Date Type Action Status Appointment Laura Darling KEPT Future Order: Lab Order Pap Smear With HPV Reflex If ASCUS Ordered ([id number]) Future Order: Radiology Order Nuchal Translucency ([id number]) Ordered Date Type Problem Goal Intervention Status [...]
[2018-02-09] MEDS ORDERED: OXYTOCIN DRIP 30 UNIT/500 ML ML IV PRN (06:19)
[2018-02-09] MEDS: LR 1,000 ML IV PRN ×3 (06:30→16:10)
[2018-02-09] MEDS: CALCIUM CARBONATE Chewable 500mg TABLET PO PRN ×2 (07:18→12:09)
[2018-02-09] MEDS: ONDANSETRON 4 MG/2 ML INJECTION IVP PRN ×2 (07:31→14:50)
[2018-02-09 08:01] VITALS: BMI 31.8
--- NOTE | 2018-02-09 08:27 | Anesthesia Preoperative Report ---
Anesthesia Epidural/Spinal Rec - Date and Time Date: 02/09/18 Procedure: Labor Epidural Plan: Epidural - Vital Signs Vital Signs: Temperature 97.9 F 02/09/18 07:42 Pulse Rate 96 02/09/18 07:42 Respiratory Rate 18 02/09/18 07:42 Blood Pressure 114/79 02/09/18 07:42 Pulse Oximetry 97 02/09/18 07:42 /Para: P:1 - Medictaions & Allergies Inpatient Medications: Current Medications Acetaminophen (Tylenol) 500 - 1,000 mg PO Q4H PRN PRN Reason: Pain Al Hydroxide/Mg Hydroxide (Maalox Plus) 30 ml PO Q3H PRN PRN Reason: Indigestion Calcium Carbonate (Tums) 500 - 1,000 mg PO Q2H PRN PRN Reason: Indigestion Last Admin: 02/09/18 07:18 Dose: 1,000 mg Carboprost Tromethamine (Hemabate) 250 mcg IM O PRN PRN Reason: .Downtime Lactated Ringer's (Lactated Ringers) 1,000 mls @ 999 mls/hr IV .Q1H1M PRN Last Admin: 02/09/18 06:30 Dose: 999 mls/hr Dextrose/Lactated Ringer's (Dextrose 5%-Lactated Ringers) 1,000 mls @ 125 mls/ hr IV .Q8H PRN PRN Reason: Labor Last Admin: 02/09/18 06:42 Dose: 125 mls/hr Oxytocin (Pitocin Drip) 30 unit in 500 mls @ 2 mls/hr IV .Q24H PRN; Protocol PRN Reason: Induction/Augmentation Last Admin: 02/09/18 06:42 Dose: 2 mls/hr Dextrose/Lactated Ringer's (Dextrose 5%-Lactated Ringers) 1,000 mls @ 125 mls/ hr IV .Q8H PRN PRN Reason: Labor Lidocaine HCl (Xylocaine-Mpf 1% Vial) 0.2 mg ID O PRN PRN Reason: IV Start Methylergonovine Maleate (Methergine) 0.2 mg IM O PRN Misoprostol (Cytotec) 800 mcg MS ONCE PRN Ondansetron HCl (Zofran) 4 mg IVP Q6H PRN PRN Reason: Nausea &/or vomiting Last Admin: 02/09/18 07:31 Dose: 4 mg Allergies/Adverse Reactions: Allergies Allergy/AdvReac Type Severity Reaction Status Date / Time cat dander Allergy Mild Verified 02/25/16 13:30 - Home Medications Home Medications: Home Medications Medication Instructions Recorded Confirmed Type Acetaminophen [Tylenol] 1,000 mg PO Q5H PRN 01/25/18 01/25/18 History CALCIUM CARBONATE Chewable [Tums] 1,000 mg PO PRN PRN 01/25/18 01/25/18 History Pnv No.95/Ferrous Fum/Folic AC 1 tab PO DAILY 01/25/18 01/25/18 History [ Tablet] - Medical History Respiratory: Reports: Asthma (adolesant) Cardiovascular: DENIES: Abnormal EKG, Angina, Arrhythmia, Congestive Heart Failure, Coronary Artery Disease, Heart Murmur, Hypertension, Hypotension, High Cholesterol, Myocardial Infarction, Rheumatic Fever, Valvular Heart Disease, Other Gastrointestional: Reports: Gastroesophageal Reflux Disease (just during ) Neuro/Musculoskeletal: Denies: HX.MS.OSAR, Back Problems, Cerebrovascular Accident, Depression, Headaches, Loss of Consciousness, Muscle Weakness, Neuromuscular Disorder, Paralysis, Paresthesia, Syncope, Seizures, Other Renal/Endocrine: DENIES: Diabetes Mellitus Type 1, Diabetes Mellitus Type 2, Renal Failure, Dialysis, Thyroid Disease, Weight Loss, Weight Gain, Other Other History: Reports: Now DENIES: Anesthesia Reactions, Blood Transfusions - Surgical History Reproductive Surgery/Treatment: DENIES: Section Anesthesia Reactions: None Hx Family Anesthesia Reaction: No History of Motion Sickness: No - Social History Smoking Status: Never smoker Substance Use Type: does not use - Pertinent Findings Lab Data: CBC and BMP 02/09/18 06:26 - Physical Exam Respiratory Exam: lungs clear, bilateral breath sounds equal Cardiovascular Exam: regular rate and rhythm, no murmur - Airway Assessment Mallampati Score: II TMD: 3 Fingerbreadths Neck Extension: good Teeth: chipped teeth/crowns (top front) Overall Assessment: may be difficult intubation - ASA ASA Score: 2 - Discussion Discussion: Discussed risks/options/alternatives of anesthesia and questions answered. Patient consents. Nursing pain assessment noted. Anesthesia Discussion: spouse Attestation Statement: Prior to the delivery of any anesthetic medication, I examined the patient, developed the plan, obtained the patient's consent and discussed the risk and benefits of the procedure with the patient/guardian.
[2018-02-09] MEDS ORDERED: ROPIVACAINE 1% 10MG/ML INJ 200 MG, SUFentanil 50 MCG in NS 100 ML EPI PRN (12:48)
[2018-02-09] MEDS ORDERED: DiphenhydrAMINE 50 MG/ML INJECTION IVP PRN (12:48)
[2018-02-09] MEDS ORDERED: ONDANSETRON 4 MG/2 ML INJECTION IVP PRN (12:48)
[2018-02-09] MEDS ORDERED: NALOXONE 0.4 MG/ML INJECTION IVP PRN (12:48)
[2018-02-09] MEDS ORDERED: HYDROCODONE/APAP 5mg/325mg TABLET PO PRN (17:13)
[2018-02-09] MEDS ORDERED: DiphenhydrAMINE 25 MG CAPSULE PO PRN (17:13)
[2018-02-09] MEDS ORDERED: CALCIUM CARBONATE Chewable 500mg TABLET PO PRN (17:13)
[2018-02-09] MEDS ORDERED: HYDROCORTISONE 2.5% CREAM 30gm RECTALLY PRN (17:13)
[2018-02-09] MEDS: IBUPROFEN 800 MG TABLET PO PRN (18:19)
[2018-02-09] MEDS ORDERED: MEASLES-MUMPS-RUBELLA VACCINE 0.5ml INJECTION SUB-Q ONE (18:22)
--- NOTE | 2018-02-09 20:04 | Labor and Delivery Note ---
DATE 02/09/2018 Ms. Darling progressed well in first stage of labor. She began to push with excellent effort to complete and +2 presentation. The baby experienced a prolonged bradycardia at the same time as the mother had quite a bit of nausea, however, she pushed well and delivered the head in the OA presentation. There was a very tight nuchal cord. I was able to clamp it and cut it and then with a further push, baby was delivered in total. Baby was then bulb suctioned and given to the nurses for care. This is a liveborn male with Apgars of 7/8/ 8. He weighed 7 pounds, 12.7 ounces. The placenta subsequently delivered spontaneously, intact. It had a normal configuration and normal-appearing three -vessel cord. There was a first-degree midline laceration that was repaired with a qszyfe-gw-ngfay suture of 2-0 Vicryl. Total blood loss was approximately 300 mL. At the time of this dictation, mother and baby are doing well. MAURILIO
[2018-02-10] MEDS: IBUPROFEN 800 MG TABLET PO PRN ×3 (03:21→16:58)
[2018-02-10] MEDS ORDERED: PRENATAL VITAMIN TABLET PO SCH (09:00)
[2018-02-10] MEDS ORDERED: DOCUSATE CALCIUM 240 MG CAPSULE PO SCH (09:00)
--- NOTE | 2018-02-10 09:29 | Anesthesia Postoperative Note ---
- Date and Time Date: 02/10/18 Time: 09:28 - Status Patient Participated in Evaluation: Patient Participated in Person Vital Signs: Temperature 97.6 F 02/10/18 03:33 Pulse Rate 57 L 02/10/18 03:33 Respiratory Rate 16 02/10/18 03:33 Blood Pressure 116/80 02/10/18 03:33 Pulse Oximetry 98 02/10/18 03:33 Respiratory Function: Airway Patent Cardiovascular Function: Regular Pulse Mental Status: Alert and Oriented Pain Intensity: 0 Hydration: Taking PO Fluids Complications During Recover: None Apparent - Follow-Up Instructions Instructions: Per Surgeon
--- NOTE | 2018-02-10 11:29 | OB/GYN Progress Note ---
OB-PP Progress Note - General PPD1 Maternal Group B Strep: Negative Maternal blood type: A+ Maternal Rubella Status: Not Immune - Subjective Date: 02/10/18 Lochia: Minimal Pain: controlled Voiding: voiding - Objective Vital Signs: Last Vital Signs Temp 97.6 F 02/10/18 03:33 Pulse 57 L 02/10/18 03:33 Resp 16 02/10/18 03:33 BP 116/80 02/10/18 03:33 Pulse Ox 98 02/10/18 03:33 General: alert and oriented Abdomen: fundus firm, non-tender Extremities: non-tender - Assessment Assessment: - Plan Plan: routine care, discharge home, continue PNV MMR given yesterday.
[2018-02-10 13:12] VITALS: RESP 14
[2018-02-10 17:23] VITALS: BP 123/69; PULSE 70; TEMP 97.3; O2SAT 97
== END 2018-02-10 18:40 | disposition home or self-care (01) | DRG 775 ==
LOC: MC 06:00
PROVIDERS: ADMIT Obstetrics & Gynecology; ATTEND Obstetrics & Gynecology